=== PATIENT | female | born 1985 | race Caucasian/White ===

== ENCOUNTER 2022-05-05 06:00 | Outpatient (CLI) | payer MEDICAID ==
--- NOTE | 2022-05-05 12:32 | XRAY Report ---
PROCEDURE: Shoulder 3 View BILAT INDICATIONS: BILAT SHOULDER PAIN TECHNIQUE: 4 views of the right shoulder and left shoulder were acquired. COMPARISON: None. FINDINGS: Bones: No fractures or dislocations. No suspicious bony lesions. Visualized ribs appear intact. Mi ld bilateral acromioclavicular joint osteoarthritis. Soft tissues: No suspicious soft tissue calcifications. IMPRESSION: Mild bilateral acromioclavicular joint osteoarthritis. No acute osseous lesion. If symptoms and/or clinical concern for pathology persists, further assessme nt with advanced imaging (CT, MR, bone scan) should be considered. Reviewed by: Simona Pryor MD, PhD on 05/05/2022 12:31 PM PDT Approved by: Simona Pryor MD, PhD on 05/05/2022 12:31 PM PDT Station ID: [id number]
== END 2022-05-05 23:59 | disposition home or self-care (01) ==
LOC: DI.WOS 06:00
PROVIDERS: ATTEND Orthopaedic Surgery
DX: M19.012 Primary osteoarthritis, left shoulder (principal); M19.011 Primary osteoarthritis, right shoulder

== ENCOUNTER 2023-01-19 17:10 | Emergency (ER) | payer MEDICAID ==
[2023-01-19 18:13] LABS: BASOPHILS % (AUTO) 0.5 %; EOSINOPHILS # (AUTO) 0.3 10^3/uL (0.0-0.7); EOSINOPHILS % (AUTO) 3.5 %; HCT - HEMATOCRIT 38.5 % (37.0-47.0); HGB - HEMOGLOBIN 12.3 g/dL (12.0-16.0); LYMPHOCYTES % (AUTO) 24.7 %; MEAN CORPUSCULAR HGB CONC 31.9 g/dL (32.0-36.0); MEAN CORPUSCULAR VOLUME 87.7 fL (81.0-99.0); MEAN PLATELET VOLUME 8.5 fL (7.9-10.8); MONOCYTES # (AUTO) 0.6 10^3/uL (0.0-1.0); MONOCYTES % (AUTO) 7.3 %; NEUTROPHILS # (AUTO) 5.1 10^3/uL (1.5-6.6); NEUTROPHILS % (AUTO) 63.6 %; PLT - PLATELET COUNT 306 10^3/uL (130-450); RED BLOOD COUNT 4.39 10^6/uL (4.20-5.40); RED CELL DISTRIBUTION WIDTH 12.9 % (12.0-15.0); WHITE BLOOD COUNT 7.9 x10^3/uL (4.8-10.8)
[2023-01-19 18:24] LABS: CALCIUM 10.6 mg/dL (8.5-10.3); CREATININE 0.9 mg/dL (0.4-1.0); MAGNESIUM 2.2 mg/dL (1.7-2.8); PHOSPHORUS 3.8 mg/dL (2.5-4.6); POTASSIUM 4.3 mmol/L (3.5-5.0)
--- NOTE | 2023-01-19 18:45 | Ultrasound Report ---
PROCEDURE: Duplex Ext Veins Bilateral INDICATIONS: ED PHYSICIAN TECHNIQUE: Real-time imaging, as well as color and pulse Doppler interrogation, were performed of the deep veins of both legs from the inguinal ligament to the popliteal fossa. COMPARISON: None. FINDINGS: The deep veins are normally compressible, and free of intraluminal thrombus. Color and pu lse Doppler demonstrate normal phasic intravascular flow. There is normal augmentation response to d istal compression maneuver. IMPRESSION: Negative for deep venous thrombosis of the bilateral lower extremities. Reviewed by: Ankit Martinez MD on 01/19/2023 6:44 PM PST Approved by: Ankit Martinez MD on 01/19/2023 6:44 PM PST Station ID: [id number]
--- NOTE | 2023-01-19 19:24 | ED Physician Documentation ---
History of Present Illness - Stated complaint Stated Complaint: LEG CRAMPS - Chief complaint Chief Complaint: Ext Problem - History obtained from History obtained from: Patient - History of Present Illness Pain level max: 5 Pain level now: 3 - Additonal information Additional information: 37-year-old female had left shoulder surgery on Thursday. She has been having cramps in her bilateral calves since that time. Her orthopedist recommended she come here to be evaluated for DVT. No leg swelling. Nothing makes it better or worse. No fevers. No chills. No chest pain. No shortness of breath. Review of Systems Constitutional: denies: Fever, Chills Respiratory: denies: Cough, Wheezing Skin: denies: Rash PD PAST MEDICAL HISTORY - Past Medical History Past Medical History: Yes - Past Surgical History Past Surgical History: Yes Other past surgical history: Left shoulder surgery - Allergies Allergies/Adverse Reactions: Allergies Allergy/AdvReac Type Severity Reaction Status Date / Time No Known Drug Allergies Allergy Verified 01/19/23 17:23 PD ED PE NORMAL - Vitals Vital signs reviewed: Yes - General General: Alert and oriented X 3, No acute distress - HEENT HEENT: Moist mucous membranes - Neck Neck: Supple, no meningeal sign - Cardiac Cardiac: RRR - Respiratory Respiratory: No respiratory distress, Clear bilaterally - Abdomen Abdomen: Soft, Non tender, Non distended - Derm Derm: Warm and dry - Extremities Extremities: No edema, No calf tenderness / cord, Other (Left shoulder in a sling) - Neuro Neuro: Alert and oriented X 3 - Psych Psych: Normal mood, Normal affect Results - Vitals Vitals: Vital Signs - 24 hr 01/19/23 01/19/23 17:25 19:35 Temperature 37 C 37 C Heart Rate 88 81 Respiratory 16 13 Rate Blood Pressure 151/97 H 136/87 H O2 Saturation 100 100 Oxygen O2 Source Room air - Labs Labs: Laboratory Tests 01/19/23 01/19/23 18:03 18:03 WBC 7.9 RBC 4.39 Hgb 12.3 Hct 38.5 MCV 87.7 MCH 28.0 MCHC 31.9 L RDW 12.9 Plt Count 306 MPV 8.5 Neut # (Auto) 5.1 Lymph # (Auto) 2.0 [place] # (Auto) 0.6 Eos # (Auto) 0.3 Baso # (Auto) 0.0 Absolute Nucleated RBC 0.00 Nucleated RBC % 0.0 Sodium 139 Potassium 4.3 Chloride 102 Carbon Dioxide 26 Anion Gap 11.0 BUN 21 H Creatinine 0.9 Estimated GFR (MDRD) 70 L Glucose 94 Calcium 10.6 H Phosphorus 3.8 Magnesium 2.2 - Rads (name of study) Duplex ultrasound bilateral lower extremity Radiology: Final report received, See rad report PD Medical Decision Making - ED course Complexity details: reviewed results, re-evaluated patient, considered differential, d/w patient, d/w family ED course: No acute findings on ultrasound. No evidence of DVT. No significant lab abnormalities other than mild dehydration. Recommend increased hydration at h ome and have her follow-up with her doctor for further care. Appearance of the bilateral lower extremities is normal tonight. No evidence of cellulitis. No swelling. Patient counseled regarding signs and symptoms for which I believe and urgent re-evaluation would be necessary. Patient with good understanding of and agreement to plan and is comfortable going home at this time This document was made in part using voice recognition software. While efforts are made to proofread this document, sound alike and grammatical errors may occur. Departure - Departure Disposition: 01 Home, Self Care Clinical Impression: Cramp in lower leg Condition: Good Instructions: ED Muscle Pain Leg Cramps Follow-Up: Anat Soto PA-C [Primary Care Provider] - Within 1 week Comments: Your ultrasound does not show any acute abnormalities today. Please make sure you are drinking plenty of fluid at home. Your labs do show mild dehydration. Your calcium is also mildly increased above normal. Please follow-up with your doctor for further care. Discharge Date/Time: 01/19/23 19:45
[2023-01-19 19:35] VITALS: BP 136/87
== END 2023-01-19 19:45 | disposition home or self-care (01) ==
LOC: ED 17:10
DX: R25.2 Cramp and spasm (principal); Z98.890 Other specified postprocedural states
CPT/HCPCS: 36415; 80048; 83735; 84100; 85025; 93970; 99283; 99284